=== PATIENT | female | born 1965 | race Caucasian/White ===

== ENCOUNTER 2016-11-16 18:31 | Emergency (ER) | payer OTHER ==
[~2016-11-16] VITALS: Ht 162.6 cm; Wt 81.1 kg
[2016-11-16 19:16] LABS: HEMATOCRIT 36.3 % (36.0-46.0); MCH 30.9 PG (29.0-34.0); MCHC 32.5 G/DL (30.0-36.0); MEAN PLAT.VOLUME 9.9 uM^3 (9.5-12.4); PLATELET COUNT 250 K/uL (156-360); RBC DIS.WIDTH-CV 12.1 % (11.8-14.6); RBC DIS.WIDTH-SD 42.5 % (39-53); RED BLOOD COUNT 3.82 M/uL (3.80-5.20); WHITE BLOOD COUNT 6.7 K/uL (4.1-10.2)
[2016-11-16 19:29] LABS: CHLORIDE 107 mEq/L (99-109); POTASSIUM 3.8 mEq/L (3.7-5.4); SODIUM 140 mEq/L (136-147)
[2016-11-16 19:31] LABS: GLUCOSE 103 mg/dL (70-99)
[2016-11-16 19:32] LABS: ANION GAP 8 MEQ/L (2-14)
[2016-11-16 19:33] LABS: TOTAL BILIRUBIN 1.2 mg/dL (0.0-1.0)
[2016-11-16 19:35] LABS: ALKALINE PHOSPHATASE 45 IU/L (3-129)
[2016-11-16 19:36] LABS: UREA NITROGEN (BUN) 17 mg/dL (9-23)
[2016-11-16 19:44] LABS: QUANTITATIVE HCG < 4.0 MIU/ML
[2016-11-16 19:49] LABS: GFR ESTIMATE (CALCULATED) > 59 mL/min/
[2016-11-16 20:25] LABS: ADD MIUA? YES; BILIRUBIN NEGATIVE; BLOOD LARGE; COLOR AMBER ((YELLOW)); GLUCOSE (STRIP) NEGATIVE; KETONES NEGATIVE; LEUKOCYTES NEGATIVE; NITRITE NEGATIVE; PROTEIN (STRIP) 100; SPECIFIC GRAVITY 1.023 (1.000-1.030); UROBILINOGEN 0.2 MG/DL (0.2-1.0)
[2016-11-16 21:05] LABS: BACTERIA NONE SEEN /HPF; CASTS NONE SEEN /LPF; EPITHELIAL CELLS 1+ /HPF; MUCUS TRACE /LPF; RED BLOOD CELLS TNTC /HPF (0-5); UCUL ADDED? NO
[2016-11-16 22:28] VITALS: BP 149/86
== END 2016-11-16 22:28 | disposition home or self-care (01) ==
LOC: EME 18:31
DX: N20.0 Calculus of kidney (principal); R31.9 Hematuria, unspecified
CPT/HCPCS: 74176; 80053; 81003; 84702; 85027; 99281; 99284